=== PATIENT | female | born 1990 | race Caucasian/White ===

== ENCOUNTER 2020-12-31 11:45 | Inpatient (IN) | payer BC ==
[2020-12-31] MEDS ORDERED: NIFEdipine 10 MG Cap PO ONE (12:45)
[2020-12-31] MEDS ORDERED: Labetalol 100 MG/20 ML MDV ONE (13:04)
[2020-12-31] MEDS ORDERED: Labetalol 100 MG/20 ML MDV IVPUSH ONE ×3 (13:06→19:53)
[2020-12-31] MEDS ORDERED: Nalbuphine 10 MG/1 ML Vial IVPUSH PRN (13:54)
[2020-12-31] MEDS ORDERED: Calcium Gluconate 10% 1 GM/10 ML SDV IV PRN (13:54)
[2020-12-31] MEDS ORDERED: Lactated Ringers 1,000 ML IV SCH (13:54)
[2020-12-31] MEDS ORDERED: Oxytocin/Lactated Ringers 10 UNIT/1,000 ML BAG IV SCH ×2 (13:54→18:45)
[2020-12-31] MEDS ORDERED: Sodium Chloride 0.9% 10 ML Syringe FLUSH PRN (13:54)
[2020-12-31] MEDS ORDERED: Magnesium Sulfate/Water 4 GM in Premix Bag 1 BAG IV ONE (14:00)
[2020-12-31] MEDS: Lactated Ringers 1,000 ML IV SCH (14:12)
[2020-12-31] MEDS ORDERED: Magnesium Sulfate/Water 2 GM in Premix Bag 1 BAG IV ONE (14:15)
[2020-12-31] MEDS: Magnesium Sulfate/Water 40 GM/1,000 ML BAG IV SCH (14:44)
[2020-12-31] MEDS: Acetaminophen 325 MG Tab PO PRN ×2 (16:50→21:38)
--- NOTE | 2020-12-31 18:16 | PCM.LDHP ---
L&D History of Present Illness - General Date of Service: 12/31/20 Admit Problem/Dx: Patient Status Order with Admit Dx/Problem 12/31/20 13:54 Patient Status [ADT] Routine Admission Diagnosis/Problem Admission Diagnosis/Problem Severe pre-eclampsia in third trimester Source of Information: Patient History Limitations: Reports: No Limitations - History of Present Illness Introduction:: Alcira Murray is a 30-year-old -0-0-2 at 40 weeks 4 days (MINERVA 12/27/2020) by LMP consistent with a 12-week ultrasound who presents for evaluation of severe range blood pressures in the clinic at her routine visit. She denies any headaches, vision changes or epigastric pain. She reports that she has been having some cramping but denies any contractions. Denies any leaking of fluid or vaginal bleeding. Reports good movement at this time. Her blood pressures in the clinic were 152/92, 152/92 and 162/102. Pain Score: 5 Associated Symptoms: Denies: vaginal bleeding, vaginal discharge, vaginal fluid Present Illness Comments:: Alcira Murray is a 30-year-old -0-0-2 female at 40 weeks 4 days (MINERVA 12/27/2020) by LMP consistent with a 12-week ultrasound who presents with suspected preeclampsia with severe features. Patient has had routine care with Dr. Urena starting at 11 weeks gestational age. Her has been overall uncomplicated. Patient has a history of gestational hypertension and declined being on aspirin during this for preeclampsia prophylaxis. She declined Tdap and flu vaccine during this . She had a normal anatomy ultrasound. Her GBS swab was negative. Her is complicated by: * History of section for her first , successful delivery with her second * Preeclampsia with severe features during this that was diagnosed at visit on 12/31/2020. Patient with history of gestational hypertension in previous , declined being on aspirin for preeclampsia prophylaxis when offered to patient DATABASE COORDINATOR history -0-0-2 G1: 05/03/2016, 37 weeks 2 days, primary section, female , 5 pounds 7 ounces G2: 07/01/2018, 40 weeks 2 days, delivery, female , 6 pounds 12 ounces G3: Current labs Blood type: B+ Antibody screen: Negative First trimester hematocrit/hemoglobin: 40.9%/13.6 on 07/09/2020 Platelets: 249 on 07/09/2020 Urine culture: Mixed sully suggestive of contamination Rubella status: Immune Hepatitis B surface antigen: Negative RPR: Negative HIV: Negative Gonorrhea: Negative Chlamydia: Negative Anatomy ultrasound: Normal anatomy, no abnormalities, anterior placenta One hour glucose tolerance test: 85 Second trimester hematocrit/hemoglobin: 39.5%/12.8 on 10/08/2020 Platelets: 200 on 10/08/2020 GBS status: Negative on 11/30/2020 - Related Data Allergies/Adverse Reactions: Allergies Allergy/AdvReac Type Severity Reaction Status Date / Time No Known Allergies Allergy Verified 12/31/20 15:49 Home Medications: Home Meds Pnv No.95/Ferrous Fum/Folic AC [ Tablet] 1 tab PO DAILY 12/31/20 [History] Past Medical History HEENT History: Reports: Impaired Vision, Other (See Below) Other HEENT History: pt wears contacts and glasses Cardiovascular History: Reports: Hypertension, Other (See Below) Other Cardiovascular History: HTN of Gastrointestinal History: Reports: Other (See Below) Other Gastrointestinal History: Gluten intolerance DATABASE COORDINATOR History: Reports: Dermatologic History: Reports: Other (See Below) Other Dermatologic History: Alopecia - Past Surgical History HEENT Surgical History: Reports: Oral Surgery Cardiovascular Surgical History: Reports: None GI Surgical History: Reports: None Dermatological Surgical History: Reports: None Social & Family History - Family History Family Medical History: No Pertinent Family History - Tobacco Use Tobacco Use Status *Q: Never Tobacco User - Tobacco Core Measures Tobacco Use/Smoking Within Last 30 Days: No Smokeless Tobacco Use in Last 30 Days: No - Caffeine Use Caffeine Use: Reports: None - Alcohol Use Alcohol Use History: No Alcohol Use in Last Twelve Months: No - Recreational Drug Use Recreational Drug Use: No - Living Situation & Occupation Living situation: Reports: Occupation: Employed H&P Review of Systems - Review of Systems: Review Of Systems: See Below General: Denies: Fever, Chills, Malaise, Weakness, Fatigue HEENT: Denies: Eye Pain, Headaches, Rhinitis, Post Nasal Drip, Sinus Congestion, Sore Throat, Visual Changes Pulmonary: Denies: Shortness of Breath, Wheezing, Pleuritic Chest Pain, Cough Cardiovascular: Denies: Chest Pain, Palpitations, Dyspnea on Exertion, Orthopnea Gastrointestinal: Denies: Abdominal Pain, Constipation, Diarrhea, Nausea, Vomiting Genitourinary: Denies: Dysuria, Frequency, Burning, Pain, Urgency Musculoskeletal: Reports: Back Pain (And hip pain or ) Skin: Reports: Other. Denies: Rash, Lesions L&D Exam - Exam Exam: See Below - Vital Signs Vital Signs: Last Vital Signs Temp 36.2 C 12/31/20 12:00 Pulse 75 12/31/20 12:00 Resp 15 12/31/20 12:00 BP 170/97 H 12/31/20 12:52 Pulse Ox 97 12/31/20 12:00 Weight: 87.09 kg - OB Specific Contraction Duration (sec): 0 Contraction Frequency (min): 0 Contraction Intensity: Irritability Movement: Active Heart Tones: Present Heart Tones per Min: 125 (+15 x 15 accelerations, no decelerations) Heart Rate (FHR) Variability: Moderate (6-25 bmp) Presentation: Vertex Estimated Weight: 6.5-7 pounds by Eduardo - Hawkins Score Hawkins Score Cervix Position: Midposition Hawkins Score Consistency: Medium Hawkins Score Effacement: 51-70% (70%) Hawkins Score Dilation: 1-2 cm (2.5 cm) Hawkins Score 's Station: -3 Hawkins Score Total: 5 - Exam General: Alert, Oriented HEENT: Conjunctiva Clear, EOMI, Other (Alopecia) Neck: Supple, Trachea Midline Lungs: Clear to Auscultation, Normal Respiratory Effort Cardiovascular: Regular Rate, Regular Rhythm GI/Abdominal Exam: Soft, Non-Tender, No Distention, Other (Gravid). No: Guardi ng, Rigid, Rebound Genitourinary: Normal external exam, Other (Attempted artificial rupture membranes on initial evaluation with small amount of fluid return. Fluid was clear. No ongoing fluid return after rupture membranes.) Skin: Warm, Dry, Intact Psychiatric: Alert, Normal Affect, Normal Mood - Patient Data Lab Results Last 24 hrs: Laboratory Results - last 24 hr 12/31/20 12/31/20 12/31/20 Range/Units 12:20 12:20 12:20 WBC 9.93 (3.98-10.04) K/mm3 RBC 4.95 (3.98-5.22) M/mm3 Hgb 13.3 (11.2-15.7) gm/dl Hct 40.8 (34.1-44.9) % MCV 82.4 (79.4-94.8) fl MCH 26.9 (25.6-32.2) pg MCHC 32.6 (32.2-35.5) g/dl RDW Std Deviation 40.2 (36.4-46.3) fL Plt Count 194 (182-369) K/mm3 MPV 11.5 (9.4-12.3) fl Neut % (Auto) 75.7 H (34.0-71.1) % Lymph % (Auto) 15.0 L (19.3-51.7) % Lewis % (Auto) 8.1 (4.7-12.5) % Eos % (Auto) 0.8 (0.7-5.8) Baso % (Auto) 0.1 (0.1-1.2) % Neut # (Auto) 7.52 H (1.56-6.13) K/mm3 Lymph # (Auto) 1.49 (1.18-3.74) K/mm3 Lewis # (Auto) 0.80 H (0.24-0.36) K/mm3 Eos # (Auto) 0.08 (0.04-0.36) K/mm3 Baso # (Auto) 0.01 (0.01-0.08) K/mm3 Sodium 135 L (136-145) mEq/L Potassium 3.5 (3.5-5.1) mEq/L Chloride 100 (98-107) mEq/L Carbon Dioxide 23 (21-32) mEq/L Anion Gap 15.5 H (5-15) BUN 10 (7-18) mg/dL Creatinine 0.6 (0.55-1.02) mg/dL Est Cr Clr Drug Dosing 99.37 mL/min Estimated GFR (MDRD) > 60 (>60) mL/min BUN/Creatinine Ratio 16.7 (14-18) Glucose 86 (74-106) mg/dL Calcium 8.7 (8.5-10.1) mg/dL Total Bilirubin 0.6 (0.2-1.0) mg/dL AST 14 L (15-37) U/L ALT 19 (14-59) U/L Alkaline Phosphatase 113 (46-116) U/L Lactate Dehydrogenase 232 (81-234) U/L Total Protein 6.5 (6.4-8.2) g/dl Albumin 2.5 L (3.4-5.0) g/dl Globulin 4.0 gm/dL Albumin/Globulin Ratio 0.6 L (1-2) Ur Random Creatinine (30.0-125.0) mg/dL U Random Total Protein (0.0-11.8) mg/dL Protein/Creatinin Ratio (0-149) mg/g SARS-CoV-2 RNA (ANDRES) (NEGATIVE) Blood Type Gel Antibody Screen 12/31/20 12/31/20 12/31/20 Range/Units 12:20 12:30 13:13 WBC (3.98-10.04) K/mm3 RBC (3.98-5.22) M/mm3 Hgb (11.2-15.7) gm/dl Hct (34.1-44.9) % MCV (79.4-94.8) fl MCH (25.6-32.2) pg MCHC (32.2-35.5) g/dl RDW Std Deviation (36.4-46.3) fL Plt Count (182-369) K/mm3 MPV (9.4-12.3) fl Neut % (Auto) (34.0-71.1) % Lymph % (Auto) (19.3-51.7) % Lewis % (Auto) (4.7-12.5) % Eos % (Auto) (0.7-5.8) Baso % (Auto) (0.1-1.2) % Neut # (Auto) (1.56-6.13) K/mm3 Lymph # (Auto) (1.18-3.74) K/mm3 Lewis # (Auto) (0.24-0.36) K/mm3 Eos # (Auto) (0.04-0.36) K/mm3 Baso # (Auto) (0.01-0.08) K/mm3 Sodium (136-145) mEq/L Potassium (3.5-5.1) mEq/L Chloride (98-107) mEq/L Carbon Dioxide (21-32) mEq/L Anion Gap (5-15) BUN (7-18) mg/dL Creatinine (0.55-1.02) mg/dL Est Cr Clr Drug Dosing mL/min Estimated GFR (MDRD) (>60) mL/min BUN/Creatinine Ratio (14-18) Glucose (74-106) mg/dL Calcium (8.5-10.1) mg/dL Total Bilirubin (0.2-1.0) mg/dL AST (15-37) U/L ALT (14-59) U/L Alkaline Phosphatase (46-116) U/L Lactate Dehydrogenase (81-234) U/L Total Protein (6.4-8.2) g/dl Albumin (3.4-5.0) g/dl Globulin gm/dL Albumin/Globulin Ratio (1-2) Ur Random Creatinine 18.6 L (30.0-125.0) mg/dL U Random Total Protein 10.1 (0.0-11.8) mg/dL Protein/Creatinin Ratio 543.0 H (0-149) mg/g SARS-CoV-2 RNA (ANDRES) Negative (NEGATIVE) Blood Type B POSITIVE Gel Antibody Screen Negative Result Diagrams: 12/31/20 12:20 12/31/20 12:20 - Problem List (1) Severe pre-eclampsia in third trimester SNOMED Code(s): 87790994, 65159485 ICD Code: O14.13 - SEVERE PRE-ECLAMPSIA, THIRD TRIMESTER Status: Acute Current Visit: Yes (2) 40 weeks gestation of SNOMED Code(s): 85165924 ICD Code: Z3A.40 - 40 WEEKS GESTATION OF Status: Acute Current Visit: No (3) Previous delivery affecting , antepartum SNOMED Code(s): 179239583, 606921594 ICD Code: O34.219 - MATERNAL CARE FOR UNSP TYPE SCAR FROM PREVIOUS DEL Status: Acute Current Visit: No Problem List Initiated/Reviewed/Updated: Yes Orders Last 24hrs: Active Orders 24 hr Category Date Time Status Patient Status [ADT] Routine ADT 12/31/20 13:54 Active Activity as Tolerated [RC] PFP Care 12/31/20 13:54 Active Bedrest [RC] ASDIRECTED Care 12/31/20 13:54 Active Communication Order [RC] ASDIRECTED Care 12/31/20 13:54 Active Communication Order [RC] ASDIRECTED Care 12/31/20 13:54 Active Heart Tones [RC] ASDIRECTED Care 12/31/20 13:54 Active Monitoring [RC] CONTINUOUS Care 12/31/20 13:54 Active Notify Provider Status Change [RC] ASDIRECTED Care 12/31/20 13:54 Active Notify Provider Vital Signs [RC] ASDIRECTED Care 12/31/20 13:54 Active Notify Provider [RC] ASDIRECTED Care 12/31/20 13:54 Active Notify Provider [RC] PFP Care 12/31/20 13:54 Active Notify Provider [RC] PRN Care 12/31/20 13:54 Active Oxygen Therapy [RC] PRN Care 12/31/20 13:54 Active Peripheral IV Care [RC] . DIRECTED Care 12/31/20 13:54 Active Pump Management, Intrathecal [RC] ASDIRECTED Care 12/31/20 13:54 Active Urinary Catheter Assessment [RC] ASDIRECTED Care 12/31/20 13:54 Active Vital Signs [RC] ASDIRECTED Care 12/31/20 13:54 Active Vital Signs [RC] PER UNIT ROUTINE Care 12/31/20 13:54 Active Regular Diet [DIET] Diet 12/31/20 Lunch Active HEP C VIRUS AB [REF] Stat Lab 12/31/20 12:20 Received RAPID PLASMA REAGIN,RPR [CHEM] Routine Lab 12/31/20 12:20 Received Acetaminophen [TylenoL] Med 12/31/20 16:32 Active 650 mg PO Q4H PRN Calcium Gluconate Med 12/31/20 13:54 Active 1 gm IV ASDIRECTED PRN Lactated Ringers [Ringers, Lactated] 1,000 ml Med 12/31/20 13:54 Active IV ASDIRECTED Lactated Ringers [Ringers, Lactated] 1,000 ml Med 12/31/20 14:00 Active IV ASDIRECTED Magnesium Sulfate/Water [Magnesium Sulfate in Water 40 Med 12/31/20 14:00 Active GM/1000 ML] 40 gm in 1,000 ml IV ASDIRECTED Nalbuphine [Nubain] Med 12/31/20 13:54 Active 10 mg IVPUSH Q2H PRN Oxytocin/Lactated Ringers [Pitocin in LR 10 Units/1,000 Med 12/31/20 13:54 Active ML] 10 unit in 1,000 ml IV .CONTINUOUS Sodium Chloride 0.9% [Saline Flush] Med 12/31/20 13:54 Active 10 ml FLUSH ASDIRECTED PRN Blood Pressure [OM.PC] ASDIRECTED Ot 12/31/20 13:54 Ordered Deep Tendon Reflexes [WOMSER] ASDIRECTED Ot 12/31/20 13:54 Ordered Electronic Heart Tones Ext w TOCO [WOMSER] Ot 12/31/20 13:54 Ordered Routine Electronic Heart Tones Internal [WOMSER] Per Unit Ot 12/31/20 13:54 Ordered Routine Medication Administration Instruction [OM.PC] Per Unit [facility] 12/31/20 13:54 Ordered Routine Peripheral IV Insertion Adult [OM.PC] Routine Ot 12/31/20 13:54 Ordered Resuscitation Status Routine Resus Stat 12/31/20 11:55 Ordered Medication Orders Acetaminophen (Acetaminophen 325 Mg Tab) 650 mg PO Q4H PRN PRN Reason: Pain Last Admin: 12/31/20 16:50 Dose: 650 mg Documented by: GRISEL Calcium Gluconate (Calcium Gluconate 10% 1 Gm/10 Ml Sdv) 1 gm IV ASDIRECTED PRN PRN Reason: respiratory distress Lactated Ringer's (Ringers, Lactated) 1,000 mls @ 100 mls/hr IV ASDIRECTED [facility] Oxytocin/Lactated Ringer's (Pitocin In Lr 10 Units/1,000 Ml) 10 unit in 1,000 mls @ 100 mls/hr IV .CONTINUOUS [facility] Lactated Ringer's (Ringers, Lactated) 1,000 mls @ 75 mls/hr IV ASDIRECTED [facility] Last Admin: 12/31/20 14:12 Dose: 75 mls/hr Documented by: BIBIANAKASAMMI Magnesium Sulfate (Magnesium Sulfate In Water 40 Gm/1000 Ml) 40 gm in 1,000 mls @ 50 mls/hr IV ASDIRECTED [facility] Last Admin: 12/31/20 14:44 Dose: 50 mls/hr Documented by: GRISEL Nalbuphine HCl (Nalbuphine 10 Mg/1 Ml Vial) 10 mg IVPUSH Q2H PRN PRN Reason: Pain Sodium Chloride (Sodium Chloride 0.9% 10 Ml Syringe) 10 ml FLUSH ASDIRECTED PRN PRN Reason: Keep Vein Open Assessment/Plan Comment:: Alcira Murray is a 30-year-old -0-0-2 female at 40 weeks 4 days (E DD 12/27/2020) undergoing medically indicated induction of labor for preeclampsia with severe features with numerous severe range blood pressures requiring treatment with nifedipine and labetalol on initial presentation to labor and delivery * Refer to observation for medically indicated induction of labor * Patient with artificial rupture membranes with small amount of clear fluid. We will monitor patient over the next several hours to see if she starts to have increased amounts of contractions with rupture membranes. If there are not any significant contractions we will start her on Pitocin for augmentation of labor * Continuous monitoring * Place IV and have Lactated Ringer's for a total fluid rate at 125 ml/hr * May have small amounts of regular diet * Activity as tolerated * May have epidural as desired * Plans to breast-feed after delivery * Continue close monitoring of blood pressures to ensure that patient does not have ongoing severe range blood pressures requiring treatment. * Start on magnesium 6 g IV bolus then 2 g/h during labor and for 24 hours after delivery due to preeclampsia with severe features * Patient had labs done that were overall within normal limits including CBC, CMP and LDH. Patient had elevated protein/creatinine ratio with a value of 0.543 which is consistent with preeclampsia. Given patient's severe range blood pressures requiring treatment with the elevated protein/creatinine ratio this consistent with preeclampsia with severe features. * Patient signed consent form for trial of labor after section with possible repeat section. Patient was counseled on the risks, benefits and alternatives to a trial of labor after section. * Anticipate vaginal delivery unless otherwise indicated Of note, this note was entered after patient had initially been seen at 1 PM. Patient was again seen at 4:30 PM and had artificial rupture membranes with return of moderate amount of clear fluid. Her cervix at that time was 2.5/80/-3/medium/mid position. Plan was to give her additional time after artificial rupture membranes before starting Pitocin. Pasquale Hall MD 6:45 PM 12/31/2020
[2020-12-31] MEDS ORDERED: Lidocaine 1% 50 ML MDV ONE (20:34)
[2020-12-31] MEDS ORDERED: Ondansetron 4 MG/2 ML SDV IVPUSH PRN (22:48)
--- NOTE | 2020-12-31 23:13 | PCM.PNLD ---
Labor Progress Note - VS & Meds Vital Signs: Last Vital Signs Temp 36.2 C 12/31/20 12:00 Pulse 75 12/31/20 12:00 Resp 15 12/31/20 12:00 BP 170/97 H 12/31/20 12:52 Pulse Ox 97 12/31/20 12:00 Active Medications: Current Medications Acetaminophen (Acetaminophen 325 Mg Tab) 650 mg PO Q4H PRN PRN Reason: Pain Last Admin: 12/31/20 21:38 Dose: 650 mg Documented by: Calcium Gluconate (Calcium Gluconate 10% 1 Gm/10 Ml Sdv) 1 gm IV ASDIRECTED PRN PRN Reason: respiratory distress Lactated Ringer's (Ringers, Lactated) 1,000 mls @ 100 mls/hr IV ASDIRECTED RAFI Oxytocin/Lactated Ringer's (Pitocin In Lr 10 Units/1,000 Ml) 10 unit in 1,000 mls @ 100 mls/hr IV .CONTINUOUS RAFI Lactated Ringer's (Ringers, Lactated) 1,000 mls @ 75 mls/hr IV ASDIRECTED RAFI Last Infusion: 12/31/20 21:34 Dose: 15 mls/hr Documented by: Magnesium Sulfate (Magnesium Sulfate In Water 40 Gm/1000 Ml) 40 gm in 1,000 mls @ 50 mls/hr IV ASDIRECTED RAFI Last Admin: 12/31/20 14:44 Dose: 50 mls/hr Documented by: Oxytocin/Lactated Ringer's (Pitocin In Lr 10 Units/1,000 Ml) 10 unit in 1,000 mls @ 12 mls/hr IV TITRATE RAFI; Protocol Last Titration: 12/31/20 22:37 Dose: 12 munits/min, 72 mls/hr Documented by: Nalbuphine HCl (Nalbuphine 10 Mg/1 Ml Vial) 10 mg IVPUSH Q2H PRN PRN Reason: Pain Ondansetron HCl (Ondansetron 4 Mg/2 Ml Sdv) 4 mg IVPUSH Q4H PRN PRN Reason: Nausea Last Admin: 12/31/20 22:55 Dose: 4 mg Documented by: Sodium Chloride (Sodium Chloride 0.9% 10 Ml Syringe) 10 ml FLUSH ASDIRECTED PRN PRN Reason: Keep Vein Open Discontinued Medications Magnesium Sulfate 4 gm/ Premix 50 mls @ 150 mls/hr IV ONETIME ONE Stop: 12/31/20 14:19 Last Admin: 12/31/20 14:27 Dose: 150 mls/hr Documented by: Magnesium Sulfate 2 gm/ Premix 50 mls @ 300 mls/hr IV ONETIME ONE Stop: 12/31/20 14:24 Last Admin: 12/31/20 14:15 Dose: 300 mls/hr Documented by: Labetalol HCl (Labetalol 100 Mg/20 Ml Mdv) 20 mg IVPUSH ONETIME ONE; Protocol Stop: 12/31/20 13:07 Last Admin: 12/31/20 13:07 Dose: 20 mg Documented by: Labetalol HCl (Labetalol 100 Mg/20 Ml Mdv) Confirm Administered Dose 100 mg .ROUTE .STK-MED ONE Stop: 12/31/20 13:05 Last Admin: 12/31/20 13:08 Dose: Not Given Documented by: Labetalol HCl (Labetalol 100 Mg/20 Ml Mdv) 20 mg IVPUSH ONETIME ONE; Protocol Stop: 12/31/20 19:27 Last Admin: 12/31/20 19:26 Dose: 20 mg Documented by: Labetalol HCl (Labetalol 100 Mg/20 Ml Mdv) 40 mg IVPUSH ONETIME ONE; Protocol Stop: 12/31/20 19:54 Last Admin: 12/31/20 20:09 Dose: 40 mg Documented by: Lidocaine HCl (Lidocaine 1% 50 Ml Mdv) Confirm Administered Dose 50 ml .ROUTE .STK-MED ONE Stop: 12/31/20 20:35 Nifedipine (Nifedipine 10 Mg Cap) 10 mg PO ONETIME ONE Stop: 12/31/20 12:46 Last Admin: 12/31/20 12:52 Dose: 10 mg Documented by: - Uterine Contractions Uterine Monitoring Mode: External [place] Contraction Frequency (min): 2-4 Contraction Duration (sec): 30-45 Contraction Intensity: Moderate to Strong Uterine Resting Tone: Soft - Monitoring Monitor Mode: Doppler/Auscultation Heart Rate (FHR) Baseline: 125 Heart Rate (FHR) Per Doppler: 125 Heart Rate (FHR) Variability: Moderate (6-25 bmp) Accelerations: Present, 15x15 Decelerations: None Strip Review: Category I - Vaginal Exam Dilation (cm): 5 Effacement (Percent): 90 Station: -2 Cervical Position: Anterior Sterile Vaginal Exam Performed By: Pasquale Hall - Labor Progress (Free Text) Labor Progress: Alcira Murray is a 30-year-old -0-0-2 female at 40 weeks 4 days undergoing medically indicated induction of labor for preeclampsia with severe features * Patient making some progress after being started on Pitocin for augmentation of labor after artificial rupture membranes. Patient currently at 5 cm di lated * Patient has been having severe range blood pressures throughout the evening requiring treatment as needed. Patient has required a total of labetalol 80 mg IV throughout the afternoon and evening. * Continue close monitoring of blood pressures to ensure that she does not have any additional severe range blood pressures that would need treatment * Continue magnesium at 2 g/h for seizure prophylaxis * Continue Pitocin for augmentation of labor * Patient may have small amounts of regular diet as tolerated * Anticipate vaginal delivery unless otherwise indicated Pasquale Hall MD 11:13 PM 12/31/2020
[2020-12-31] MEDS ORDERED: Oxytocin/Lactated Ringers 20 UNIT/1,000 ML BAG IV SCH (23:15)
[2021-01-01] MEDS ORDERED: diphenhydrAMINE 50 MG/ML SDV IVPUSH PRN (02:13)
[2021-01-01] MEDS ORDERED: fentaNYL 100 MCG/2 ML SDV EPIDUR PRN (02:13)
[2021-01-01] MEDS ORDERED: ePHEDrine 50 MG/ML SDV IVPUSH PRN (02:13)
[2021-01-01] MEDS ORDERED: Bupivacaine/fentaNYL/NS 100 ML Bag EPIDUR PRN (02:13)
[2021-01-01] MEDS: Lactated Ringers 1,000 ML IV SCH (02:29)
--- NOTE | 2021-01-01 02:48 | PCM.PREANE ---
Preanesthetic Assessment - Procedure Proposed Procedure: epidural - Anesthesia/Transfusion/Family Hx Anesthesia History: Prior Anesthesia Without Reaction Family History of Anesthesia Reaction: No Transfusion History: No Prior Transfusion(s) - Review of Systems General: Fatigue Pulmonary: No Symptoms Cardiovascular: No Symptoms Gastrointestinal: Abdominal Pain (labor) Neurological: No Symptoms Other: Reports: None - Physical Assessment Vital Signs: Last Vital Signs Temp 36.2 C 12/31/20 12:00 Pulse 75 12/31/20 12:00 Resp 15 12/31/20 12:00 BP 170/97 H 12/31/20 12:52 Pulse Ox 97 12/31/20 12:00 Height: 1.52 m Weight: 87.09 kg ASA Class: 2 Mental Status: Alert & Oriented x3 Airway Class: Mallampati = 2 Dentition: Reports: Normal Dentition Thyro-Mental Finger Breadths: 2 Mouth Opening Finger Breadths: 2 ROM/Head Extension: Full Lungs: Clear to Auscultation, Normal Respiratory Effort Cardiovascular: Regular Rate, Regular Rhythm - Lab Values: Laboratory Last Values WBC 9.93 K/mm3 (3.98-10.04) 12/31/20 12:20 RBC 4.95 M/mm3 (3.98-5.22) 12/31/20 12:20 Hgb 13.3 gm/dl (11.2-15.7) 12/31/20 12:20 Hct 40.8 % (34.1-44.9) 12/31/20 12:20 MCV 82.4 fl (79.4-94.8) 12/31/20 12:20 MCH 26.9 pg (25.6-32.2) 12/31/20 12:20 MCHC 32.6 g/dl (32.2-35.5) 12/31/20 12:20 RDW Std Deviation 40.2 fL (36.4-46.3) 12/31/20 12:20 Plt Count 194 K/mm3 (182-369) 12/31/20 12:20 MPV 11.5 fl (9.4-12.3) 12/31/20 12:20 Neut % (Auto) 75.7 % (34.0-71.1) H 12/31/20 12:20 Lymph % (Auto) 15.0 % (19.3-51.7) L 12/31/20 12:20 [place] % (Auto) 8.1 % (4.7-12.5) 12/31/20 12:20 Eos % (Auto) 0.8 (0.7-5.8) 12/31/20 12:20 Baso % (Auto) 0.1 % (0.1-1.2) 12/31/20 12:20 Neut # (Auto) 7.52 K/mm3 (1.56-6.13) H 12/31/20 12:20 Lymph # (Auto) 1.49 K/mm3 (1.18-3.74) 12/31/20 12:20 [place] # (Auto) 0.80 K/mm3 (0.24-0.36) H 12/31/20 12:20 Eos # (Auto) 0.08 K/mm3 (0.04-0.36) 12/31/20 12:20 Baso # (Auto) 0.01 K/mm3 (0.01-0.08) 12/31/20 12:20 Sodium 135 mEq/L (136-145) L 12/31/20 12:20 Potassium 3.5 mEq/L (3.5-5.1) 12/31/20 12:20 Chloride 100 mEq/L (98-107) 12/31/20 12:20 Carbon Dioxide 23 mEq/L (21-32) 12/31/20 12:20 Anion Gap 15.5 (5-15) H 12/31/20 12:20 BUN 10 mg/dL (7-18) 12/31/20 12:20 Creatinine 0.6 mg/dL (0.55-1.02) 12/31/20 12:20 Est Cr Clr Drug Dosing 99.37 mL/min 12/31/20 12:20 Estimated GFR (MDRD) > 60 mL/min (>60) 12/31/20 12:20 BUN/Creatinine Ratio 16.7 (14-18) 12/31/20 12:20 Glucose 86 mg/dL (74-106) 12/31/20 12:20 Calcium 8.7 mg/dL (8.5-10.1) 12/31/20 12:20 Total Bilirubin 0.6 mg/dL (0.2-1.0) 12/31/20 12:20 AST 14 U/L (15-37) L 12/31/20 12:20 ALT 19 U/L (14-59) 12/31/20 12:20 Alkaline Phosphatase 113 U/L (46-116) 12/31/20 12:20 Lactate Dehydrogenase 232 U/L (81-234) 12/31/20 12:20 Total Protein 6.5 g/dl (6.4-8.2) 12/31/20 12:20 Albumin 2.5 g/dl (3.4-5.0) L 12/31/20 12:20 Globulin 4.0 gm/dL 12/31/20 12:20 Albumin/Globulin Ratio 0.6 (1-2) L 12/31/20 12:20 Ur Random Creatinine 18.6 mg/dL (30.0-125.0) L 12/31/20 12:30 U Random Total Protein 10.1 mg/dL (0.0-11.8) 12/31/20 12:30 Protein/Creatinin Ratio 543.0 mg/g (0-149) H 12/31/20 12:30 RPR Non-reactive (NONREACTIVE) 12/31/20 12:20 SARS-CoV-2 RNA (ANDRES) Negative (NEGATIVE) 12/31/20 13:13 Blood Type B POSITIVE 12/31/20 12:20 Gel Antibody Screen Negative 12/31/20 12:20 - Allergies Allergies/Adverse Reactions: Allergies Allergy/AdvReac Type Severity Reaction Status Date / Time No Known Allergies Allergy Verified 12/31/20 15:49 - Acknowledgements Anesthesia Type Planned: Epidural Pt an Appropriate Candidate for the Planned Anesthesia: Yes Alternatives and Risks of Anesthesia Discussed w Pt/Guardian: Yes Pt/Guardian Understands and Agrees with Anesthesia Plan: Yes PreAnesthesia Questionnaire HEENT History: Reports: Impaired Vision, Other (See Below) Other HEENT History: pt wears contacts and glasses Cardiovascular History: Reports: Hypertension, Other (See Below) Other Cardiovascular History: HTN of Gastrointestinal History: Reports: GERD, Other (See Below) Other Gastrointestinal History: Gluten intolerance 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: Dermatologic History: Reports: Other (See Below) Other Dermatologic History: Alopecia - Past Surgical History HEENT Surgical History: Reports: Oral Surgery Cardiovascular Surgical History: Reports: None GI Surgical History: Reports: None Dermatological Surgical History: Reports: None - SUBSTANCE USE Tobacco Use Status *Q: Never Tobacco User Recreational Drug Use History: No - HOME MEDS Home Medications: Home Meds Pnv No.95/Ferrous Fum/Folic AC [ Tablet] 1 tab PO DAILY 12/31/20 [History] - CURRENT (IN HOUSE) MEDS Current Meds: Current Medications Acetaminophen (Acetaminophen 325 Mg Tab) 650 mg PO Q4H PRN PRN Reason: Pain Last Admin: 12/31/20 21:38 Dose: 650 mg Documented by: Calcium Gluconate (Calcium Gluconate 10% 1 Gm/10 Ml Sdv) 1 gm IV ASDIRECTED PRN PRN Reason: respiratory distress Diphenhydramine HCl (Diphenhydramine 50 Mg/Ml Sdv) 25 mg IVPUSH Q6H PRN PRN Reason: pruritis Ephedrine Sulfate (Ephedrine 50 Mg/Ml Sdv) 5 mg IVPUSH ASDIRECTED PRN PRN Reason: Hypotension Fentanyl (Fentanyl 100 Mcg/2 Ml Sdv) 100 mcg EPIDUR Q3H PRN PRN Reason: Pain Last Admin: 01/01/21 02:26 Dose: 100 mcg Documented by: Fentanyl/Bupivacaine HCl (Bupivacaine/Fentanyl/Ns 100 Ml Bag) 100 ml EPIDUR ASDIRECTED PRN PRN Reason: Pain Last Admin: 01/01/21 02:26 Dose: 100 ml Documented by: Lactated Ringer's (Ringers, Lactated) 1,000 mls @ 100 mls/hr IV ASDIRECTED RFAI Oxytocin/Lactated Ringer's (Pitocin In Lr 10 Units/1,000 Ml) 10 unit in 1,000 mls @ 100 mls/hr IV .CONTINUOUS RAFI Lactated Ringer's (Ringers, Lactated) 1,000 mls @ 75 mls/hr IV ASDIRECTED RAFI Last Admin: 01/01/21 02:29 Dose: 30 mls/hr Documented by: Magnesium Sulfate (Magnesium Sulfate In Water 40 Gm/1000 Ml) 40 gm in 1,000 mls @ 50 mls/hr IV ASDIRECTED RAFI Last Admin: 12/31/20 14:44 Dose: 50 mls/hr Documented by: Oxytocin/Lactated Ringer's (Pitocin In Lr 10 Units/1,000 Ml) 10 unit in 1,000 mls @ 12 mls/hr IV TITRATE RAFI; Protocol Last Titration: 12/31/20 22:37 Dose: 12 munits/min, 72 mls/hr Documented by: Oxytocin/Lactated Ringer's (Pitocin In Lr 20 Units/1,000 Ml) 20 unit in 1,000 mls @ 42 mls/hr IV TITRATE RAFI; Protocol Last Admin: 12/31/20 23:36 Dose: 42 mls/hr Documented by: Nalbuphine HCl (Nalbuphine 10 Mg/1 Ml Vial) 10 mg IVPUSH Q2H PRN PRN Reason: Pain Ondansetron HCl (Ondansetron 4 Mg/2 Ml Sdv) 4 mg IVPUSH Q4H PRN PRN Reason: Nausea Last Admin: 12/31/20 22:55 Dose: 4 mg Documented by: Sodium Chloride (Sodium Chloride 0.9% 10 Ml Syringe) 10 ml FLUSH ASDIRECTED PRN PRN Reason: Keep Vein Open Discontinued Medications Magnesium Sulfate 4 gm/ Premix 50 mls @ 150 mls/hr IV ONETIME ONE Stop: 12/31/20 14:19 Last Admin: 12/31/20 14:27 Dose: 150 mls/hr Documented by: Magnesium Sulfate 2 gm/ Premix 50 mls @ 300 mls/hr IV ONETIME ONE Stop: 12/31/20 14:24 Last Admin: 12/31/20 14:15 Dose: 300 mls/hr Documented by: Labetalol HCl (Labetalol 100 Mg/20 Ml Mdv) 20 mg IVPUSH ONETIME ONE; Protocol Stop: 12/31/20 13:07 Last Admin: 12/31/20 13:07 Dose: 20 mg Documented by: Labetalol HCl (Labetalol 100 Mg/20 Ml Mdv) Confirm Administered Dose 100 mg .ROUTE .STK-MED ONE Stop: 12/31/20 13:05 Last Admin: 12/31/20 13:08 Dose: Not Given Documented by: Labetalol HCl (Labetalol 100 Mg/20 Ml Mdv) 20 mg IVPUSH ONETIME ONE; Protocol Stop: 12/31/20 19:27 Last Admin: 12/31/20 19:26 Dose: 20 mg Documented by: Labetalol HCl (Labetalol 100 Mg/20 Ml Mdv) 40 mg IVPUSH ONETIME ONE; Protocol Stop: 12/31/20 19:54 Last Admin: 12/31/20 20:09 Dose: 40 mg Documented by: Lidocaine HCl (Lidocaine 1% 50 Ml Mdv) Confirm Administered Dose 50 ml .ROUTE .[facility]-MED ONE Stop: 12/31/20 20:35 Last Admin: 01/01/21 00:14 Dose: Not Given Documented by: Nifedipine (Nifedipine 10 Mg Cap) 10 mg PO ONETIME ONE Stop: 12/31/20 12:46 Last Admin: 12/31/20 12:52 Dose: 10 mg Documented by:
--- NOTE | 2021-01-01 05:38 | PCM.DEL ---
L & D Note - General Info Date of Service: 01/01/21 Mother's Due Date: 12/27/20 - Delivery Note Labor: Augmented by Oxytocin, Induced by ARM Delivery Outcome: Livebirth Delivery Method: Spontaneous Vaginal Delivery-Single Presentation: Left Occiput Anterior (SPENCER) Nuchal Cord: Present (x1), Reduced (prior to delivery) Anesthesia Type: Epidural Episiotomy Type: None Laceration: Labial (superficial bialteral medial labia minora lacerations, hemostatic, not repaired) Placenta: Intact, Spontaneous Cord: 3 Vessels Estimated Blood Loss: 150 Resuscitation Needed: Yes [place]: Suctioned, Bulb Syringe, Cathether, Stimulated, Warmed, [place] Used, Warmer Used Second Stage Interventions: Reports: Pushing, Stirrups/Leg Supports Delivery Comments (Free Text/Narrative):: Stage I: Alcira Murray was admitted for medically indicated induction of labor due to preeclampsia with severe features. On admission her cervix was dilated to 2 cm. She was GBS negative. On initial presentation she had multiple severe range blood pressures into the 170s/100s and was treated with nifedipine 10 mg p.o. and an IV was started. She continued to have severe range blood pressures into the 160s/90s and was then given labetalol 20 mg IV. Her blood pressures improved at this time. She was started on magnesium sulfate with 6 g IV bolus then 2 g/h for seizure prophylaxis. She underwent artificial rupture membranes with return of small amount of clear fluid. She was allowed to labor for several hours with minimal change. On reexamination she was felt to still have an intact bag of water and artificial rupture membranes was again performed with return of a moderate amount of clear fluid. She continued to labor for several hours with minimal change and was started on Pitocin for augmentation of labor. In the early evening she had additional severe range blood pressures that were again treated with labetalol 20 mg IV and then a second dose of labetalol 40 mg IV was given. She had mild range blood pressures after the 2 doses of labetalol in the evening. She was continued on IV Pitocin for augmentation of labor. She was given epidural for anesthesia. She progressed to complete and pushing. Stage II: On 01/01/2021 she had a normal vaginal delivery after section of a live female infant at 04:55. Apgars of 7 & 9. Weight of 2870 g (6 lbs 5.2 oz). Length of 21.0 inches. There was a single nuchal cord that was reduced prior to delivery. was delivered in SPENCER position. The cord was doubly clamped and cut by mother of the . was placed on mother's abdomen and then taken to the warmer for additional resuscitation. Stage III: She had a spontaneous delivery of an intact placenta in [place] presentation. Three vessel cord. She was given pitocin and fundal massage. She had bilateral superficial abrasions on the medial labia minora that were hemostatic and not repaired. Mom and baby were stable to recovery. EBL of 150 mL. Pasquale Hall MD 5:32 AM 01/01/2021 Induction Criteria - Hawkins Score Hawkins Score Dilation: 1-2 cm Hawkins Score Effacement: 60-70% Hawkins Score 's Station: -3 Hawkins Score Consistency: Medium Hawkins Score Cervix Position: Midposition Hawkins Score Total: 5 Hawkins Score Presenting Part: Reports: Cephalic - Induction Gestational Age >/= 39 wks: Yes Medical Indication: Preeclampsia with severe features with severe range blood pressures requiring treatment with p.o. and IV antihypertensive medications Estimated Pelvis: Reports: Adequate Reassuring Monitoring Strip: Yes Absence of Tachy Systole: Yes - Augmentation Estimated Pelvis: Reports: Adequate Weight Estimated:: Reports: AGA Reassuring Monitoring Strip: Yes Absence of Tachy Systole: Yes - General Info Date of Service: 01/01/21 - Patient Data Vitals - Most Recent: Last Vital Signs Temp 36.2 C 12/31/20 12:00 Pulse 75 12/31/20 12:00 Resp 15 12/31/20 12:00 BP 170/97 H 12/31/20 12:52 Pulse Ox 97 12/31/20 12:00 Weight - Most Recent: 87.09 kg I&O - Last 24 Hours: Intake & Output 12/31/20 12/31/20 01/01/21 14:59 22:59 06:59 Intake Total 80 120 950 Output Total 1550 500 Balance 80 -1430 450 Lab Results Last 24 Hours: Laboratory Results - last 24 hr 12/31/20 12/31/20 12/31/20 Range/Units 12:20 12:20 12:20 WBC 9.93 (3.98-10.04) K/mm3 RBC 4.95 (3.98-5.22) M/mm3 Hgb 13.3 (11.2-15.7) gm/dl Hct 40.8 (34.1-44.9) % MCV 82.4 (79.4-94.8) fl MCH 26.9 (25.6-32.2) pg MCHC 32.6 (32.2-35.5) g/dl RDW Std Deviation 40.2 (36.4-46.3) fL Plt Count 194 (182-369) K/mm3 MPV 11.5 (9.4-12.3) fl Neut % (Auto) 75.7 H (34.0-71.1) % Lymph % (Auto) 15.0 L (19.3-51.7) % [place] % (Auto) 8.1 (4.7-12.5) % Eos % (Auto) 0.8 (0.7-5.8) Baso % (Auto) 0.1 (0.1-1.2) % Neut # (Auto) 7.52 H (1.56-6.13) K/mm3 Lymph # (Auto) 1.49 (1.18-3.74) K/mm3 [place] # (Auto) 0.80 H (0.24-0.36) K/mm3 Eos # (Auto) 0.08 (0.04-0.36) K/mm3 Baso # (Auto) 0.01 (0.01-0.08) K/mm3 Sodium 135 L (136-145) mEq/L Potassium 3.5 (3.5-5.1) mEq/L Chloride 100 (98-107) mEq/L Carbon Dioxide 23 (21-32) mEq/L Anion Gap 15.5 H (5-15) BUN 10 (7-18) mg/dL Creatinine 0.6 (0.55-1.02) mg/dL Est Cr Clr Drug Dosing 99.37 mL/min Estimated GFR (MDRD) > 60 (>60) mL/min BUN/Creatinine Ratio 16.7 (14-18) Glucose 86 (74-106) mg/dL Calcium 8.7 (8.5-10.1) mg/dL Total Bilirubin 0.6 (0.2-1.0) mg/dL AST 14 L (15-37) U/L ALT 19 (14-59) U/L Alkaline Phosphatase 113 (46-116) U/L Lactate Dehydrogenase 232 (81-234) U/L Total Protein 6.5 (6.4-8.2) g/dl Albumin 2.5 L (3.4-5.0) g/dl Globulin 4.0 gm/dL Albumin/Globulin Ratio 0.6 L (1-2) Ur Random Creatinine (30.0-125.0) mg/dL U Random Total Protein (0.0-11.8) mg/dL Protein/Creatinin Ratio (0-149) mg/g RPR (NONREACTIVE) SARS-CoV-2 RNA (ANDRES) (NEGATIVE) Blood Type Gel Antibody Screen 12/31/20 12/31/20 12/31/20 Range/Units 12:20 12:20 12:30 WBC (3.98-10.04) K/mm3 RBC (3.98-5.22) M/mm3 Hgb (11.2-15.7) gm/dl Hct (34.1-44.9) % MCV (79.4-94.8) fl MCH (25.6-32.2) pg MCHC (32.2-35.5) g/dl RDW Std Deviation (36.4-46.3) fL Plt Count (182-369) K/mm3 MPV (9.4-12.3) fl Neut % (Auto) (34.0-71.1) % Lymph % (Auto) (19.3-51.7) % [place] % (Auto) (4.7-12.5) % Eos % (Auto) (0.7-5.8) Baso % (Auto) (0.1-1.2) % Neut # (Auto) (1.56-6.13) K/mm3 Lymph # (Auto) (1.18-3.74) K/mm3 [place] # (Auto) (0.24-0.36) K/mm3 Eos # (Auto) (0.04-0.36) K/mm3 Baso # (Auto) (0.01-0.08) K/mm3 Sodium (136-145) mEq/L Potassium (3.5-5.1) mEq/L Chloride (98-107) mEq/L Carbon Dioxide (21-32) mEq/L Anion Gap (5-15) BUN (7-18) mg/dL Creatinine (0.55-1.02) mg/dL Est Cr Clr Drug Dosing mL/min Estimated GFR (MDRD) (>60) mL/min BUN/Creatinine Ratio (14-18) Glucose (74-106) mg/dL Calcium (8.5-10.1) mg/dL Total Bilirubin (0.2-1.0) mg/dL AST (15-37) U/L ALT (14-59) U/L Alkaline Phosphatase (46-116) U/L Lactate Dehydrogenase (81-234) U/L Total Protein (6.4-8.2) g/dl Albumin (3.4-5.0) g/dl Globulin gm/dL Albumin/Globulin Ratio (1-2) Ur Random Creatinine 18.6 L (30.0-125.0) mg/dL U Random Total Protein 10.1 (0.0-11.8) mg/dL Protein/Creatinin Ratio 543.0 H (0-149) mg/g RPR Non-reactive (NONREACTIVE) SARS-CoV-2 RNA (ANDRES) (NEGATIVE) Blood Type B POSITIVE Gel Antibody Screen Negative 12/31/20 Range/Units 13:13 WBC (3.98-10.04) K/mm3 RBC (3.98-5.22) M/mm3 Hgb (11.2-15.7) gm/dl Hct (34.1-44.9) % MCV (79.4-94.8) fl MCH (25.6-32.2) pg MCHC (32.2-35.5) g/dl RDW Std Deviation (36.4-46.3) fL Plt Count (182-369) K/mm3 MPV (9.4-12.3) fl Neut % (Auto) (34.0-71.1) % Lymph % (Auto) (19.3-51.7) % [place] % (Auto) (4.7-12.5) % Eos % (Auto) (0.7-5.8) Baso % (Auto) (0.1-1.2) % Neut # (Auto) (1.56-6.13) K/mm3 Lymph # (Auto) (1.18-3.74) K/mm3 [place] # (Auto) (0.24-0.36) K/mm3 Eos # (Auto) (0.04-0.36) K/mm3 Baso # (Auto) (0.01-0.08) K/mm3 Sodium (136-145) mEq/L Potassium (3.5-5.1) mEq/L Chloride (98-107) mEq/L Carbon Dioxide (21-32) mEq/L Anion Gap (5-15) BUN (7-18) mg/dL Creatinine (0.55-1.02) mg/dL Est Cr Clr Drug Dosing mL/min Estimated GFR (MDRD) (>60) mL/min BUN/Creatinine Ratio (14-18) Glucose (74-106) mg/dL Calcium (8.5-10.1) mg/dL Total Bilirubin (0.2-1.0) mg/dL AST (15-37) U/L ALT (14-59) U/L Alkaline Phosphatase (46-116) U/L Lactate Dehydrogenase (81-234) U/L Total Protein (6.4-8.2) g/dl Albumin (3.4-5.0) g/dl Globulin gm/dL Albumin/Globulin Ratio (1-2) Ur Random Creatinine (30.0-125.0) mg/dL U Random Total Protein (0.0-11.8) mg/dL Protein/Creatinin Ratio (0-149) mg/g RPR (NONREACTIVE) SARS-CoV-2 RNA (ANDRES) Negative (NEGATIVE) Blood Type Gel Antibody Screen Med Orders - Current: Current Medications Acetaminophen (Acetaminophen 325 Mg Tab) 650 mg PO Q4H PRN PRN Reason: Pain Last Admin: 12/31/20 21:38 Dose: 650 mg Documented by: Calcium Gluconate (Calcium Gluconate 10% 1 Gm/10 Ml Sdv) 1 gm IV ASDIRECTED PRN PRN Reason: respiratory distress Diphenhydramine HCl (Diphenhydramine 50 Mg/Ml Sdv) 25 mg IVPUSH Q6H PRN PRN Reason: pruritis Ephedrine Sulfate (Ephedrine 50 Mg/Ml Sdv) 5 mg IVPUSH ASDIRECTED PRN PRN Reason: Hypotension Fentanyl (Fentanyl 100 Mcg/2 Ml Sdv) 100 mcg EPIDUR Q3H PRN PRN Reason: Pain Last Admin: 01/01/21 02:26 Dose: 100 mcg Documented by: Fentanyl/Bupivacaine HCl (Bupivacaine/Fentanyl/Ns 100 Ml Bag) 100 ml EPIDUR ASDIRECTED PRN PRN Reason: Pain Last Admin: 01/01/21 02:26 Dose: 100 ml Documented by: Lactated Ringer's (Ringers, Lactated) 1,000 mls @ 100 mls/hr IV ASDIRECTED RAFI Oxytocin/Lactated Ringer's (Pitocin In Lr 10 Units/1,000 Ml) 10 unit in 1,000 mls @ 100 mls/hr IV .CONTINUOUS RAFI Lactated Ringer's (Ringers, Lactated) 1,000 mls @ 75 mls/hr IV ASDIRECTED RAFI Last Admin: 01/01/21 02:29 Dose: 30 mls/hr Documented by: Magnesium Sulfate (Magnesium Sulfate In Water 40 Gm/1000 Ml) 40 gm in 1,000 mls @ 50 mls/hr IV ASDIRECTED RAFI Stop: 01/02/21 04:55 Last Admin: 12/31/20 14:44 Dose: 50 mls/hr Documented by: Oxytocin/Lactated Ringer's (Pitocin In Lr 10 Units/1,000 Ml) 10 unit in 1,000 mls @ 12 mls/hr IV TITRATE RAFI; Protocol Last Titration: 12/31/20 22:37 Dose: 12 munits/min, 72 mls/hr Documented by: Oxytocin/Lactated Ringer's (Pitocin In Lr 20 Units/1,000 Ml) 20 unit in 1,000 mls @ 42 mls/hr IV TITRATE RAFI; Protocol Last Admin: 12/31/20 23:36 Dose: 42 mls/hr Documented by: Nalbuphine HCl (Nalbuphine 10 Mg/1 Ml Vial) 10 mg IVPUSH Q2H PRN PRN Reason: Pain Ondansetron HCl (Ondansetron 4 Mg/2 Ml Sdv) 4 mg IVPUSH Q4H PRN PRN Reason: Nausea Last Admin: 12/31/20 22:55 Dose: 4 mg Documented by: Sodium Chloride (Sodium Chloride 0.9% 10 Ml Syringe) 10 ml FLUSH ASDIRECTED PRN PRN Reason: Keep Vein Open Discontinued Medications Magnesium Sulfate 4 gm/ Premix 50 mls @ 150 mls/hr IV ONETIME ONE Stop: 12/31/20 14:19 Last Admin: 12/31/20 14:27 Dose: 150 mls/hr Documented by: Magnesium Sulfate 2 gm/ Premix 50 mls @ 300 mls/hr IV ONETIME ONE Stop: 12/31/20 14:24 Last Admin: 12/31/20 14:15 Dose: 300 mls/hr Documented by: Labetalol HCl (Labetalol 100 Mg/20 Ml Mdv) 20 mg IVPUSH ONETIME ONE; Protocol Stop: 12/31/20 13:07 Last Admin: 12/31/20 13:07 Dose: 20 mg Documented by: Labetalol HCl (Labetalol 100 Mg/20 Ml Mdv) Confirm Administered Dose 100 mg .ROUTE .STK-MED ONE Stop: 12/31/20 13:05 Last Admin: 12/31/20 13:08 Dose: Not Given Documented by: Labetalol HCl (Labetalol 100 Mg/20 Ml Mdv) 20 mg IVPUSH ONETIME ONE; Protocol Stop: 12/31/20 19:27 Last Admin: 12/31/20 19:26 Dose: 20 mg Documented by: Labetalol HCl (Labetalol 100 Mg/20 Ml Mdv) 40 mg IVPUSH ONETIME ONE; Protocol Stop: 12/31/20 19:54 Last Admin: 12/31/20 20:09 Dose: 40 mg Documented by: Lidocaine HCl (Lidocaine 1% 50 Ml Mdv) Confirm Administered Dose 50 ml .ROUTE .STK-MED ONE Stop: 12/31/20 20:35 Last Admin: 01/01/21 00:14 Dose: Not Given Documented by: Nifedipine (Nifedipine 10 Mg Cap) 10 mg PO ONETIME ONE Stop: 12/31/20 12:46 Last Admin: 12/31/20 12:52 Dose: 10 mg Documented by: - Problem List & Annotations (1) Severe pre-eclampsia in third trimester SNOMED Code(s): 16814577, 55025362 Code(s): O14.13 - SEVERE PRE-ECLAMPSIA, THIRD TRIMESTER Status: Acute Current Visit: Yes (2) 40 weeks gestation of SNOMED Code(s): 95586716 Code(s): Z3A.40 - 40 WEEKS GESTATION OF Status: Acute Current Visit: No (3) Previous delivery affecting , antepartum SNOMED Code(s): 869247797, 756227763 Code(s): O34.219 - MATERNAL CARE FOR UNSP TYPE SCAR FROM PREVIOUS DEL Status: Acute Current Visit: No (4) Vaginal delivery SNOMED Code(s): 779476579 Code(s): O80 - ENCOUNTER FOR FULL-TERM UNCOMPLICATED DELIVERY Status: Acute Current Visit: Yes (5) Vaginal delivery following previous section, delivered SNOMED Code(s): 266897581 Code(s): O34.219 - MATERNAL CARE FOR UNSP TYPE SCAR FROM PREVIOUS DEL Status: Acute Current Visit: Yes - Problem List Review Problem List Initiated/Reviewed/Updated: Yes - My Orders Last 24 Hours: My Active Orders 12/31/20 Lunch Regular Diet [DIET] 12/31/20 11:55 Resuscitation Status Routine 12/31/20 12:20 HEP C VIRUS AB [REF] Stat 12/31/20 13:54 Calcium Gluconate 1 gm IV ASDIRECTED PRN Lactated Ringers [Ringers, Lactated] 1,000 ml IV ASDIRECTED Nalbuphine [Nubain] 10 mg IVPUSH Q2H PRN Oxytocin/Lactated Ringers [Pitocin in LR 10 Units/1,000 ML] 10 unit in 1,000 ml IV .CONTINUOUS Sodium Chloride 0.9% [Saline Flush] 10 ml FLUSH ASDIRECTED PRN Blood Pressure [OM.PC] ASDIRECTED Deep Tendon Reflexes [WOMSER] ASDIRECTED 12/31/20 13:54 Patient Status [ADT] Routine Activity as Tolerated [RC] PFP Bedrest [RC] ASDIRECTED Communication Order [RC] ASDIRECTED Communication Order [RC] ASDIRECTED Heart Tones [RC] ASDIRECTED Monitoring [RC] CONTINUOUS Notify Provider Status Change [RC] ASDIRECTED Notify Provider Vital Signs [RC] ASDIRECTED Notify Provider [RC] ASDIRECTED Notify Provider [RC] PFP Notify Provider [RC] PRN Oxygen Therapy [RC] PRN Peripheral IV Care [RC] . DIRECTED Pump Management, Intrathecal [RC] ASDIRECTED Urinary Catheter Assessment [RC] ASDIRECTED Vital Signs [RC] ASDIRECTED Vital Signs [RC] PER UNIT ROUTINE Electronic Heart Tones Ext w TOCO [WOMSER] Routine Electronic Heart Tones Internal [WOMSER] Per Unit Routine Medication Administration Instruction [OM.PC] Per Unit Routine Peripheral IV Insertion Adult [OM.PC] Routine 12/31/20 14:00 Lactated Ringers [Ringers, Lactated] 1,000 ml IV ASDIRECTED Magnesium Sulfate/Water [Magnesium Sulfate in Water 40 GM/1000 ML] 40 gm in 1,000 ml IV ASDIRECTED 12/31/20 16:32 Acetaminophen [TylenoL] 650 mg PO Q4H PRN 12/31/20 18:45 Oxytocin/Lactated Ringers [Pitocin in LR 10 Units/1,000 ML] 10 unit in 1,000 ml IV TITRATE 12/31/20 22:48 Ondansetron [Zofran] 4 mg IVPUSH Q4H PRN 12/31/20 23:15 Oxytocin/Lactated Ringers [Pitocin in LR 20 Units/1,000 ML] 20 unit in 1,000 ml IV TITRATE 01/01/21 05:13 Patient Status Manage Transfer [TRANSFER] Routine - Plan Plan:: Alcira Murray is a 30-year-old now -0-0-3 female status post successful , PPD #0, complicated by preeclampsia with severe features with 2 episodes of severe range blood pressures requiring treatment and history of section Admit to inpatient following normal vaginal delivery after section Continue Pitocin per unit protocol following delivery of placenta and lactated Ringer's until tolerating regular diet Regular diet Vitals every 4 hours after initial transition period after delivery Routine deep tendon reflexes to check for mild range hypermagnesemia Continue magnesium sulfate IV at 2 g/h for 24 hours after delivery Ibuprofen and Tylenol for pain control Assist with breast-feeding as needed Continue to monitor lochia Anticipate discharge home on day #2 if blood pressures are able to be well controlled after discontinuation of magnesium sulfate Pasquale Hall MD 5:32 AM 01/01/2021
[2021-01-01] MEDS ORDERED: Benzocaine/Menthol 20%-0.5% Spray 56 GM Canister TOP PRN (05:53)
[2021-01-01] MEDS ORDERED: Witch Hazel Medicated Pads 40/Jar TOP PRN (05:53)
[2021-01-01] MEDS ORDERED: Hydrocortisone Acetate 25 MG Supp RECTAL PRN (05:53)
[2021-01-01] MEDS ORDERED: Lactated Ringers 1,000 ML IV SCH (05:53)
[2021-01-01] MEDS ORDERED: Magnesium Hydroxide 400 MG/5 ML Susp 30 ML Cup PO PRN (05:53)
[2021-01-01] MEDS ORDERED: Oxytocin/Lactated Ringers 20 UNIT/1,000 ML BAG IV SCH (05:53)
[2021-01-01] MEDS ORDERED: Acetaminophen 325 MG Tab PO PRN (05:53)
[2021-01-01] MEDS ORDERED: Bupivacaine 0.25% 10 ML SDV ONE (07:00)
[2021-01-01] MEDS: Magnesium Sulfate/Water 40 GM/1,000 ML BAG IV SCH (09:51)
[2021-01-01] MEDS: Ibuprofen 600 MG Tab PO PRN ×2 (12:00→18:02)
[2021-01-01] MEDS: Prenatal Multivitamin with Calcium/Folic Acid/Iron Tab PO SCH (12:00)
[2021-01-01] MEDS ORDERED: Labetalol 100 MG Tab PO ONE (13:43)
[2021-01-01] MEDS ORDERED: Labetalol 100 MG/20 ML MDV IVPUSH ONE (18:27)
[2021-01-01] MEDS: Labetalol 100 MG Tab PO SCH (22:15)
[2021-01-02] MEDS: Ibuprofen 600 MG Tab PO PRN (08:30)
--- NOTE | 2021-01-02 08:30 | PCM.SN.2 ---
- Free Text/Narrative Note: Post Progress Note PPD #1 Subjective: Doing well overall. Ambulating without difficulty. Lochia minimal. Voiding without difficulty. Tolerating regular diet without nausea or vomiting. Pain minimal and not requiring oral medications at this time. Breast-feeding with minimal difficulty. Denies any headache, vision changes or epigastric pain. Objective: Vitals: Vital Signs - 24 hr 01/01/21 01/01/21 01/01/21 11:56 13:25 13:51 Temperature 36.4 C Pulse, 84 80 Peripheral Respiratory 14 Rate Blood Pressure 174/96 H 164/94 H 160/98 H O2 Sat by Pulse 98 Oximetry 01/01/21 01/01/21 01/01/21 14:34 17:06 18:04 Temperature 36.7 C 36.2 C Pulse, 80 86 Peripheral Respiratory 16 14 Rate Blood Pressure 148/80 H 146/90 H 158/91 H O2 Sat by Pulse 99 96 Oximetry 01/01/21 01/01/21 01/01/21 18:41 19:47 22:15 Temperature 36.7 C Pulse, 78 75 81 Peripheral Respiratory 14 Rate Blood Pressure 167/96 H 154/89 H 150/86 H O2 Sat by Pulse 97 99 Oximetry 01/01/21 01/01/21 01/02/21 22:16 23:55 04:07 Temperature 36.6 C 35.9 C L Pulse, 76 80 71 Peripheral Respiratory 14 15 Rate Blood Pressure 150/86 H 129/73 155/95 H O2 Sat by Pulse 97 97 98 Oximetry Physical Exam General: Alert and oriented, no acute distress Lungs: Clear to auscultation bilaterally Heart: Regular rate and rhythm Abdomen: Soft, minimal appropriate tenderness, non-distended, fundus midline, nontender, and at the umbilicus Extremities: 1+ edema in bilateral lower extremities to knees, 2+ reflexes in bilateral patella and bicep tendons, no calf tenderness bilaterally ASSESSMENT: 30-year-old female -0-0-3 s/p normal vaginal delivery after section PPD #1, complicated by preeclampsia with severe features and was on magnesium sulfate IV for 24 hours after delivery and history of section PLAN: Overall doing well, patient with ongoing severe range and mild range blood pressures throughout the day of PPD #0. Patient was started on labetalol 100 mg 3 times daily. Blood pressures since starting on labetalol have been in the 120s to 150s/80s to 90s. We will continue to monitor her blood pressures and may increase her labetalol if she continues to have blood pressures higher than 150/100. Breast-feeding with minimal difficulty. Assist as needed Lochia minimal. Continue to monitor for appropriate lochia. Continue routine care Anticipate discharge home tomorrow if blood pressures continue to be well controlled Pasquale Hall MD 8:28 AM 01/02/2021
[2021-01-02] MEDS: Docusate Sodium 100 MG Cap PO PRN ×2 (08:31→20:57)
[2021-01-02] MEDS: Prenatal Multivitamin with Calcium/Folic Acid/Iron Tab PO SCH (08:50)
[2021-01-02] MEDS: Labetalol 100 MG Tab PO SCH ×3 (08:50→20:49)
--- NOTE | 2021-01-03 07:04 | PCM.DCSUM1 ---
Discharge Summary - Hospital Course Diagnosis: Stroke: No - Discharge Data Discharge Date: 01/03/21 Discharge Disposition: Home, Self-Care 01 Condition: Good - Referral to Home Health Primary Care Physician: Maximo Urena MD - Patient Summary/Data Hospital Course: Admitted for induction for pre-ecclampsia. Uncompliated course. - Patient Instructions Driving: May Drive Today Showering/Bathing: May Shower Wound/Incision Care: Keep Operative Site/Wound Site Clean and Dry, Change Dressing Daily, Do NOT Change Dressing Notify Provider of: Fever, Increased Pain, Swelling and Redness, Drainage, Nausea and/or Vomiting - Discharge Plan *PRESCRIPTION DRUG MONITORING PROGRAM REVIEWED*: No *COPY OF PRESCRIPTION DRUG MONITORING REPORT IN PATIENT JONATAN: No Home Medications: Home Meds Pnv No.95/Ferrous Fum/Folic AC [ Tablet] 1 tab PO DAILY 12/31/20 [History] Referrals: Maximo Urena MD [Primary Care Provider] - (1 week) - Discharge Summary/Plan Comment DC Time >30 min.: No - General Info Date of Service: 01/03/21 Functional Status: Reports: Pain Controlled - Review of Systems General: Reports: No Symptoms HEENT: Reports: No Symptoms Pulmonary: Reports: No Symptoms Cardiovascular: Reports: No Symptoms Gastrointestinal: Reports: No Symptoms Genitourinary: Reports: No Symptoms Musculoskeletal: Reports: No Symptoms Skin: Reports: No Symptoms Neurological: Reports: No Symptoms Psychiatric: Reports: No Symptoms - Patient Data Vitals - Most Recent: Last Vital Signs Temp 36.5 C 01/03/21 04:02 Pulse 69 01/03/21 04:04 Resp 16 01/03/21 04:02 BP 131/77 01/03/21 04:04 Pulse Ox 97 01/03/21 04:04 Weight - Most Recent: 82.826 kg I&O - Last 24 hours: Intake & Output 01/02/21 01/03/21 01/03/21 22:59 06:59 14:59 Intake Total 400 Output Total 1300 1050 Balance -900 -1050 Med Orders - Current: Current Medications Acetaminophen (Acetaminophen 325 Mg Tab) 650 mg PO Q6H PRN PRN Reason: mild pain or fever Benzocaine/Menthol (Benzocaine/Menthol 20%-0.5% [place] 56 Gm Canister) 0 gm TOP ASDIRECTED PRN PRN Reason: Perineal Comfort Measure Last Admin: 01/01/21 09:53 Dose: 1 canister Documented by: Docusate Sodium (Docusate Sodium 100 Mg Cap) 100 mg PO BID PRN PRN Reason: Constipation Last Admin: 01/02/21 20:57 Dose: 100 mg Documented by: Hydrocortisone Acetate (Hydrocortisone Acetate 25 Mg Supp) 25 mg RECTAL BID PRN PRN Reason: Hemorrhoid pain Lactated Ringer's (Ringers, Lactated) 1,000 mls @ 75 mls/hr IV ASDIRECTED [facility] Last Infusion: 01/01/21 18:41 Dose: 25 mls/hr Documented by: Oxytocin/Lactated Ringer's (Pitocin In Lr 20 Units/1,000 Ml) 20 unit in 1,000 mls @ 500 mls/hr IV SEECOMMENT [facility]; Protocol Ibuprofen (Ibuprofen 600 Mg Tab) 600 mg PO Q6H PRN PRN Reason: Mild pain or fever Last Admin: 01/02/21 08:30 Dose: 600 mg Documented by: Labetalol HCl (Labetalol 100 Mg Tab) 100 mg PO TID [facility] Last Admin: 01/02/21 20:49 Dose: 100 mg Documented by: Magnesium Hydroxide (Magnesium Hydroxide 400 Mg/5 Ml Susp 30 Ml Cup) 30 ml PO BEDTIME PRN PRN Reason: Constipation Prenat Multivit/[place]/Iron/Folic Ac ( Multivitamin With Calcium/Folic Acid/Iron Tab) 1 each PO DAILY [facility] Last Admin: 01/02/21 08:50 Dose: 1 each Documented by: Lul Pepper (Lul Pepper Medicated Pads 40/Jar) 1 pad TOP ASDIRECTED PRN PRN Reason: Perineal Comfort Measure Last Admin: 01/01/21 09:52 Dose: 1 tub Documented by: Discontinued Medications Acetaminophen (Acetaminophen 325 Mg Tab) 650 mg PO Q4H PRN PRN Reason: Pain Last Admin: 12/31/20 21:38 Dose: 650 mg Documented by: Bupivacaine HCl (Bupivacaine 0.25% 10 Ml Sdv) 10 ml .ROUTE .STK-MED ONE Stop: 01/01/21 07:01 Calcium Gluconate (Calcium Gluconate 10% 1 Gm/10 Ml Sdv) 1 gm IV ASDIRECTED PRN PRN Reason: respiratory distress Diphenhydramine HCl (Diphenhydramine 50 Mg/Ml Sdv) 25 mg IVPUSH Q6H PRN PRN Reason: pruritis Ephedrine Sulfate (Ephedrine 50 Mg/Ml Sdv) 5 mg IVPUSH ASDIRECTED PRN PRN Reason: Hypotension Fentanyl (Fentanyl 100 Mcg/2 Ml Sdv) 100 mcg EPIDUR Q3H PRN PRN Reason: Pain Last Admin: 01/01/21 02:26 Dose: 100 mcg Documented by: Fentanyl/Bupivacaine HCl (Bupivacaine/Fentanyl/Ns 100 Ml Bag) 100 ml EPIDUR ASDIRECTED PRN PRN Reason: Pain Last Admin: 01/01/21 02:26 Dose: 100 ml Documented by: Lactated Ringer's (Ringers, Lactated) 1,000 mls @ 100 mls/hr IV ASDIRECTED [facility] Magnesium Sulfate 4 gm/ Premix 50 mls @ 150 mls/hr IV ONETIME ONE Stop: 12/31/20 14:19 Last Admin: 12/31/20 14:27 Dose: 150 mls/hr Documented by: Magnesium Sulfate 2 gm/ Premix 50 mls @ 300 mls/hr IV ONETIME ONE Stop: 12/31/20 14:24 Last Admin: 12/31/20 14:15 Dose: 300 mls/hr Documented by: Oxytocin/Lactated Ringer's (Pitocin In Lr 10 Units/1,000 Ml) 10 unit in 1,000 mls @ 100 mls/hr IV .CONTINUOUS [facility] Lactated Ringer's (Ringers, Lactated) 1,000 mls @ 75 mls/hr IV ASDIRECTED [facility] Last Admin: 01/01/21 02:29 Dose: 30 mls/hr Documented by: Magnesium Sulfate (Magnesium Sulfate In Water 40 Gm/1000 Ml) 40 gm in 1,000 mls @ 50 mls/hr IV ASDIRECTED [facility] Stop: 01/02/21 04:55 Last Admin: 01/01/21 09:51 Dose: 50 mls/hr Documented by: Oxytocin/Lactated Ringer's (Pitocin In Lr 10 Units/1,000 Ml) 10 unit in 1,000 mls @ 12 mls/hr IV TITRATE [facility]; Protocol Last Titration: 12/31/20 22:37 Dose: 12 munits/min, 72 mls/hr Documented by: Oxytocin/Lactated Ringer's (Pitocin In Lr 20 Units/1,000 Ml) 20 unit in 1,000 mls @ 42 mls/hr IV TITRATE [facility]; Protocol Last Admin: 12/31/20 23:36 Dose: 42 mls/hr Documented by: Labetalol HCl (Labetalol 100 Mg/20 Ml Mdv) 20 mg IVPUSH ONETIME ONE; Protocol Stop: 12/31/20 13:07 Last Admin: 12/31/20 13:07 Dose: 20 mg Documented by: Labetalol HCl (Labetalol 100 Mg/20 Ml Mdv) Confirm Administered Dose 100 mg .ROUTE .STK-MED ONE Stop: 12/31/20 13:05 Last Admin: 12/31/20 13:08 Dose: Not Given Documented by: Labetalol HCl (Labetalol 100 Mg/20 Ml Mdv) 20 mg IVPUSH ONETIME ONE; Protocol Stop: 12/31/20 19:27 Last Admin: 12/31/20 19:26 Dose: 20 mg Documented by: Labetalol HCl (Labetalol 100 Mg/20 Ml Mdv) 40 mg IVPUSH ONETIME ONE; Protocol Stop: 12/31/20 19:54 Last Admin: 12/31/20 20:09 Dose: 40 mg Documented by: Labetalol HCl (Labetalol 100 Mg Tab) 100 mg PO ONETIME ONE Stop: 01/01/21 13:44 Last Admin: 01/01/21 13:51 Dose: 100 mg Documented by: Labetalol HCl (Labetalol 100 Mg/20 Ml Mdv) 10 mg IVPUSH ONETIME ONE; Protocol Stop: 01/01/21 18:28 Last Admin: 01/01/21 18:41 Dose: 10 mg Documented by: Lidocaine HCl (Lidocaine 1% 50 Ml Mdv) Confirm Administered Dose 50 ml .ROUTE .STK-MED ONE Stop: 12/31/20 20:35 Last Admin: 01/01/21 00:14 Dose: Not Given Documented by: Nalbuphine HCl (Nalbuphine 10 Mg/1 Ml Vial) 10 mg IVPUSH Q2H PRN PRN Reason: Pain Nifedipine (Nifedipine 10 Mg Cap) 10 mg PO ONETIME ONE Stop: 12/31/20 12:46 Last Admin: 12/31/20 12:52 Dose: 10 mg Documented by: Ondansetron HCl (Ondansetron 4 Mg/2 Ml Sdv) 4 mg IVPUSH Q4H PRN PRN Reason: Nausea Last Admin: 12/31/20 22:55 Dose: 4 mg Documented by: Sodium Chloride (Sodium Chloride 0.9% 10 Ml Syringe) 10 ml FLUSH ASDIRECTED PRN PRN Reason: Keep Vein Open - Exam General: Reports: Alert, Oriented HEENT: Reports: Pupils Equal, Pupils Reactive, EOMI, Mucous Membr. Moist/[place] Neck: Reports: Supple Lungs: Reports: Clear to Auscultation, Normal Respiratory Effort Cardiovascular: Reports: Regular Rate, Regular Rhythm GI/Abdominal Exam: Normal Bowel Sounds, Soft, Non-Tender, No Organomegaly, No Distention, No Abnormal Bruit, No Mass (Female) Exam: Normal External Exam Back Exam: Reports: Normal Inspection, Full Range of Motion Extremities: Normal Inspection, Normal Range of Motion, Non-Tender, No Pedal Edema, Normal Capillary Refill Skin: Reports: Warm, Dry, Intact Wound/Incisions: Reports: Healing Well Neurological: Reports: No New Focal Deficit Psy/Mental Status: Reports: Alert, Normal Affect, Normal Mood
[2021-01-03 09:24] VITALS: BP 131/83
[2021-01-03] MEDS: Labetalol 100 MG Tab PO SCH (09:24)
[2021-01-03] MEDS: Prenatal Multivitamin with Calcium/Folic Acid/Iron Tab PO SCH (09:24)
[2021-01-03 10:33] VITALS: PULSE 73
== END 2021-01-03 10:55 | disposition home or self-care (01) | DRG 560 ==
LOC: JD.OBCHECK 11:45 → JD.OB 13:01 → JD.OBCHECK 13:43 → OBSVTOIN 01-01 04:55 → JD.OB 01-01 04:55
PROVIDERS: ADMIT Obstetrics & Gynecology; ATTEND Obstetrics & Gynecology
PROC: 10E0XZZ Delivery of Products of Conception, External Approach (ICD-10-PCS; principal; 2021-01-01)
PROC: 10907ZC Drainage of Amniotic Fluid, Therapeutic from Products of Conception, Via Natural or Artificial Opening (ICD-10-PCS; 2021-01-01)
PROC: 3E033VJ Introduction of Other Hormone into Peripheral Vein, Percutaneous Approach (ICD-10-PCS; 2021-01-01)
PROC: 3E0R3BZ Introduction of Anesthetic Agent into Spinal Canal, Percutaneous Approach (ICD-10-PCS; 2021-01-01)
PROC: 00HU33Z Insertion of Infusion Device into Spinal Canal, Percutaneous Approach (ICD-10-PCS; 2021-01-01)
DX: O14.13 Severe pre-eclampsia, third trimester (principal); Z37.0 Single live birth; O69.81X0 Labor and delivery complicated by cord around neck, without compression, not applicable or unspecified; Z20.822 Contact with and (suspected) exposure to COVID-19; Z3A.40 40 weeks gestation of pregnancy
CPT/HCPCS: 01967; 36415; 51702; 59025; 59409; 80053; 82570; 83615; 84156; 85025; 86592; 86803; 86850; 86900; 86901; A9270-GY; J2405; J2590; J3010; J3475; J3490; J7120; U0002

== ENCOUNTER 2023-02-06 09:28 | Inpatient (IN) | payer BC ==
[2023-02-06 15:38] LABS: BASOPHILS ABSOLUTE AUTO 0.01 K/mm3 (0.01-0.08); BASOPHILS PERCENT AUTO 0.1 % (0.1-1.2); EOSINOPHILS ABSOLUTE AUTO 0.07 K/mm3 (0.04-0.36); EOSINOPHILS PERCENT AUTO 0.7 (0.7-5.8); HEMATOCRIT 41.9 % (34.1-44.9); HEMOGLOBIN 13.9 gm/dl (11.2-15.7); IMMATURE GRAN ABSOLUTE AUTO 0.03 K/mm3 (0.00-0.10); IMMATURE GRAN PERCENT AUTO 0.3 % (<=1.0); LYMPHOCYTES ABSOLUTE AUTO 1.73 K/mm3 (1.18-3.74); LYMPHOCYTES PERCENT AUTO 17.9 % (19.3-51.7); MEAN CORPUSCULAR HEMOGLOBIN 27.9 pg (25.6-32.2); MEAN CORPUSCULAR HGB CONC 33.2 g/dl (32.2-35.5); MEAN CORPUSCULAR VOLUME 84.1 fl (79.4-94.8); MEAN PLATELET VOLUME 10.6 fl (9.4-12.3); MONOCYTES ABSOLUTE AUTO 0.71 K/mm3 (0.24-0.36); MONOCYTES PERCENT AUTO 7.4 % (4.7-12.5); NEUTROPHILS PERCENT AUTO 73.6 % (34.0-71.1); PLATELET COUNT,PLT 213 K/mm3 (182-369); RED BLOOD CELL COUNT 4.98 M/mm3 (3.98-5.22); WHITE BLOOD CELL COUNT,WBC 9.65 K/mm3 (3.98-10.04)
[2023-02-06 15:54] LABS: CREATININE,URINE RAND 28.9 mg/dL (30.0-125.0); PROTEIN CREATININE RATIO,URINE 287.2 mg/g (0-149); PROTEIN,URINE RANDOM 8.3 mg/dL (0.0-11.8)
[2023-02-06 16:03] LABS: A/G RATIO 0.6 (1-2); ALBUMIN 2.6 g/dl (3.4-5.0); ANION GAP 13.8 (5-15); BILIRUBIN TOTAL 0.6 mg/dL (0.2-1.0); CALCIUM 9.3 mg/dL (8.5-10.1); CREATININE 0.5 mg/dL (0.55-1.02); EST CRCL DRUG DOSING (CG) 117.1 mL/min; POTASSIUM,K 3.8 mEq/L (3.5-5.1); PROTEIN TOTAL,TP 6.7 g/dl (6.4-8.2)
[2023-02-06] MEDS ORDERED: Sodium Chloride 0.9% 10 ML Syringe FLUSH PRN (16:11)
[2023-02-06] MEDS ORDERED: Labetalol 100 MG/20 ML MDV IVPUSH ONE (19:59)
[2023-02-06] MEDS ORDERED: Sodium Chloride 0.9% 10 ML Syringe FLUSH SCH (21:00)
[2023-02-06] MEDS: Lactated Ringers 1,000 ML IV SCH (22:30)
[2023-02-06] MEDS ORDERED: Oxytocin/Lactated Ringers 10 UNIT/1,000 ML BAG IV SCH (22:30)
[2023-02-07] MEDS ORDERED: Bupivacaine 0.25% 10 ML SDV ONE
[2023-02-07] MEDS: Lactated Ringers 1,000 ML IV SCH (06:45)
[2023-02-07] MEDS ORDERED: diphenhydrAMINE 50 MG/ML SDV IVPUSH PRN (08:25)
[2023-02-07] MEDS ORDERED: fentaNYL 100 MCG/2 ML SDV EPIDUR PRN (08:25)
[2023-02-07] MEDS ORDERED: Bupivacaine/fentaNYL/NS 100 ML Bag EPIDUR PRN (08:25)
[2023-02-07] MEDS ORDERED: ePHEDrine 50 MG/ML SDV IVPUSH PRN (08:25)
[2023-02-07] MEDS ORDERED: Ibuprofen 600 MG Tab PO PRN (11:46)
[2023-02-07] MEDS ORDERED: Acetaminophen 325 MG Tab PO PRN (11:46)
[2023-02-07] MEDS ORDERED: Benzocaine/Menthol 20%-0.5% Spray 78 GM Cannister TOP PRN (11:46)
[2023-02-07] MEDS ORDERED: Witch Hazel Medicated Pads 40/Jar TOP PRN (11:46)
[2023-02-08 09:45] VITALS: BP 142/74; PULSE 95
== END 2023-02-08 13:20 | disposition home or self-care (01) | DRG 560 ==
LOC: JD.OB 09:28 → OBSVTOIN 02-07 09:28 → JD.OB 02-07 09:29
PROVIDERS: ADMIT Family Medicine; ATTEND Family Medicine
PROC: 10E0XZZ Delivery of Products of Conception, External Approach (ICD-10-PCS; principal; 2023-02-07)
PROC: 10907ZC Drainage of Amniotic Fluid, Therapeutic from Products of Conception, Via Natural or Artificial Opening (ICD-10-PCS; 2023-02-07)
PROC: 0U7C7ZZ Dilation of Cervix, Via Natural or Artificial Opening (ICD-10-PCS; 2023-02-07)
PROC: 3E0R3BZ Introduction of Anesthetic Agent into Spinal Canal, Percutaneous Approach (ICD-10-PCS; 2023-02-07)
PROC: 00HU33Z Insertion of Infusion Device into Spinal Canal, Percutaneous Approach (ICD-10-PCS; 2023-02-07)
PROC: 3E033VJ Introduction of Other Hormone into Peripheral Vein, Percutaneous Approach (ICD-10-PCS; 2023-02-07)
DX: O10.92 Unspecified pre-existing hypertension complicating childbirth (principal); O69.81X0 Labor and delivery complicated by cord around neck, without compression, not applicable or unspecified; Z37.0 Single live birth; Z3A.37 37 weeks gestation of pregnancy
CPT/HCPCS: 36415; 51701; 59025; 59409; 80053; 82570; 84156; 85025; 86592; 86850; 86900; 86901; C1726; J2590; J3010; J3490; J7120